=== PATIENT | male | born 1975 ===

== ENCOUNTER 2017-08-07 10:41 | Emergency (ER) | payer OTHER ==
[2017-08-07 10:41] VITALS: BMI 31.6
[2017-08-07] MEDS ORDERED: Sodium Chloride 0.9% 1,000 ML IV ONE (12:07)
[2017-08-07 12:26] LABS: BASO # 0.1 K/uL (0.0-0.2); BASO % 1.4 % (0.0-2.0); EOS # 0.2 K/uL (0.0-0.7); EOS % 2.8 % (0.0-4.0); HEMATOCRIT 45.2 % (35.0-51.0); LYMPH # 2.3 K/uL (1.0-4.3); LYMPH % 39.1 % (20.0-40.0); MEAN CELL VOLUME 87.4 fL (80.0-94.0); MEAN CORPUSCULAR HEMOGLOBIN 29.8 pg (27.0-31.0); MEAN CORPUSCULAR HGB CONC 34.1 g/dL (33.0-37.0); MEAN PLATELET VOLUME 9.9 fL (7.2-11.7); MONO # 0.5 K/uL (0.0-0.8); NRBC % 0.2 % (0.0-2.0); RED CELL DISTRIBUTION WIDTH 13.6 % (11.5-14.5); WHITE BLOOD COUNT 5.9 K/uL (4.8-10.8)
[2017-08-07 12:29] LABS: URINE BILIRUBIN NEGATIVE (NEGATIVE); URINE BLOOD NEGATIVE (NEGATIVE); URINE COLOR Yellow (YELLOW); URINE GLUCOSE (UA) NORMAL (Normal); URINE KETONE NEGATIVE (NEGATIVE); URINE LEUKOCYTE ESTERASE NEG Leu/uL (Negative); URINE PROTEIN NEGATIVE (NEGATIVE); URINE UROBILINOGEN NORMAL mg/dL (0.2-1.0); WBC URINE < 1 /hpf (0-5)
[2017-08-07 12:49] LABS: CHLORIDE 106 mmol/L (98-107); POTASSIUM 3.7 mmol/L (3.6-5.2); SODIUM 141 mmol/L (132-148)
[2017-08-07] MEDS ORDERED: Sodium Chloride 0.9% 1,000 ML ONE (12:49)
[2017-08-07 12:51] LABS: ALB/GLOB RATIO 1.3 (1.0-2.1); ALKALINE PHOSPHATASE 96 U/L (38-126); AST/SGOT 97 U/L (17-59); BILIRUBIN,TOTAL 0.9 mg/dL (0.2-1.3); CARBON DIOXIDE 23 mmol/L (22-30); GFR AFRICAN-AMERICAN > 60; TOTAL PROTEIN 7.8 g/dL (6.3-8.3)
[2017-08-07 12:52] LABS: ALT/SGPT 169 U/L (21-72); BLOOD UREA NITROGEN 15 mg/dL (9-20); CALCIUM 9.1 mg/dl (8.6-10.4); GLUCOSE,RANDOM 113 mg/dL (75-110)
[2017-08-07 13:00] VITALS: RESP 18; O2SAT 99
--- NOTE | 2017-08-07 13:53 | C.PDOC ---
History Of Present Illness 41 y/o male presents to ED for evaluation of intermittent RLQ abdominal pain associated with nausea for 3 days. (+)diarrhea. Pain radiates to right testicle yesterday, improved today. Otherwise, denies any vomiting, back pain, dysuria, hematuria, urinary frequency/retention, fever, or any other associated symptoms at this time. (+) h/o saba in 02/2017. Time Seen by Provider: 08/07/17 11:30 Chief Complaint (Nursing): Abdominal Pain History Per: Patient History/Exam Limitations: no limitations Onset/Duration Of Symptoms: Days Current Symptoms Are (Timing): Still Present Location Of Pain/Discomfort: RLQ Radiation Of Pain To:: None Quality Of Discomfort: "Pain" Associated Symptoms: Nausea, Diarrhea. denies: Fever, Chills, Vomiting, Loss Of Appetite, Back Pain, Chest Pain, Constipation, Urinary Symptoms Exacerbating Factors: None Alleviating Factors: None Recent travel outside of the [place]: No Additional History Per: Patient Past Medical History Reviewed: Historical Data, Nursing Documentation, Vital Signs Vital Signs: Last Vital Signs Temp 98.2 F 08/07/17 15:48 Pulse 78 08/07/17 15:48 Resp 18 08/07/17 15:48 BP 122/68 08/07/17 15:48 Pulse Ox 99 08/07/17 18:44 - Medical History PMH: Gastritis Denies: Chronic Kidney Disease - [facility] Procedures RESECTION OF GALLBLADDER, PERCUTANEOUS ENDOSCOPIC APPROACH (03/15/17) Family History: States: Unknown Family Hx - Social History Hx Alcohol Use: No Hx Substance Use: No - Immunization History Hx Tetanus Toxoid Vaccination: No Hx Influenza Vaccination: No Hx Pneumococcal Vaccination: No Review Of Systems Except As Marked, All Systems Reviewed And Found Negative. Constitutional: Negative for: Fever, Chills Gastrointestinal: Positive for: Nausea, Abdominal Pain, Diarrhea. Negative for : Vomiting, Constipation, Melena, Hematochezia Genitourinary: Positive for: Scrotal Pain. Negative for: Dysuria, Frequency, Hematuria, Penile Discharge, Penile Pain Musculoskeletal: Negative for: Back Pain Skin: Negative for: Rash, Bruising Neurological: Negative for: Headache, Dizziness Physical Exam - Physical Exam Appears: Non-toxic, No Acute Distress Skin: Normal Color, Warm, Dry, No Rash Head: Atraumatic, Normacephalic Eye(s): bilateral: Normal Inspection, EOMI Nose: Normal Oral Mucosa: Moist Neck: Normal ROM, Supple Chest: Symmetrical Cardiovascular: Rhythm Regular, No Murmur Respiratory: Normal Breath Sounds, No Rales, No Rhonchi, No Wheezing Gastrointestinal/Abdominal: Soft, Tenderness (RLQ), No Distention, No Guarding, No Rebound Back: No CVA Tenderness Extremity: Normal ROM, No Pedal Edema Neurological/Psych: Oriented x3, Normal Speech ED Course And Treatment - Laboratory Results Result Diagrams: 08/07/17 12:22 08/07/17 12:22 O2 Sat by Pulse Oximetry: 99 (on RA) Pulse Ox Interpretation: Normal - CT Scan/US Pelvis w/o contrast Other Rad Studies (CT/US): Interpreted By Me, Read By Radiologist CT/US Interpretation: ADDENDUM: Study was correlated with prior outside examination from [facility] dated 03/22/2017. [ Addendum Report Added by Sean Adan MD at 08/07/2017 15:09:20 ]. PROCEDURE: CT Abdomen and Pelvis with contrast. HISTORY: abd pain. COMPARISON: None. TECHNIQUE: Contrast dose: Visipaque 320, 100 cc. Radiation dose: Total exam DLP = 771 mGy-cm. This CT exam was performed using one or more of the following dose reduction techniques: Automated exposure control, adjustment of the mA and/or kV according to patient size, and/or use of iterative reconstruction technique. FINDINGS: LOWER THORAX: Respiratory motion degrades imaging through the images lung bases. Small hiatal hernia is encountered. LIVER: There is prominent diffuse fatty infiltration liver however there is no discrete mass appreciated throughout the liver. GALLBLADDER AND BILE DUCTS: Prior cholecystectomy again evident with prior postoperative changes now resolved. PANCREAS: Prior peripancreatic reaction appears to have resolved. No interval gross lesion or ductal dilatation. SPLEEN : Unremarkable. ADRENALS: Unremarkable. No mass. KIDNEYS AND URETERS: Unremarkable. No hydronephrosis. No solid mass. VASCULATURE: Unremarkable. No aortic aneurysm. BOWEL: Moderate retained fecal material is identified at the right hemicolon the stomach is collapsed as well as most of the small bowel. No bowel obstruction appreciable. APPENDIX: Normal appendix. PERITONEUM: Unremarkable. No free fluid. No free air. LYMPH NODES: Unremarkable. No enlarged lymph nodes. BLADDER: Unremarkable. REPRODUCTIVE: Unremarkable. BONES: No acute fracture. OTHER FINDINGS: None. IMPRESSION: 1. Normal- appearing appendix. 2. No obstructive uropathy bilaterally. 3. No bowel obstruction, mesenteric edema or ascites identified. 4. Resolution of prior postoperative cholecystectomy changes at the gallbladder fossa. 5. Apparent resolution of prior pancreatitis. Further clinical correlation is recommended. Testicular US Other Rad Studies (CT/US): Interpreted By Me, Read By Radiologist CT/US Interpretation: HISTORY: right sided pain. TECHNIQUE: Realtime sonography through the scrotum with color and doppler flow. COMPARISON: None Available. FINDINGS: RIGHT TESTICLE: Measures 4.2 x 2.3 x 3.0 cm. Normal echotexture and flow. RIGHT EPIDIDYMIS: Epididymal head measures 1.4 x 0.1 x 1.1 cm. Grossly unremarkable appearance with normal flow. LEFT TESTICLE: Measures 4.2 x 2.3 x 2.8 cm. Normal echotexture and flow. LEFT EPIDIDYMIS: Epididymal head measures 1.2 x 0.7 x 1.3 cm. There is a 0.8 x 0.8 x 1.0 cm left definite of avascular epididymal cyst at the head medially. HYDROCELE: Trace bilateral hydroceles are noted at the upper bilateral hemiscrotal regions. VARICOCELE: None. OTHER FINDINGS: None. IMPRESSION: 1. 1 cm left epididymal cyst appears avascular on color Doppler ultrasound. 2. Trace bilateral upper kely scrotal hydroceles. 3. No sonographic evidence to suggest testicular torsion, mass or cyst. Progress Note: Blood work, Abd & pelvis CT, UA, testicular US ordered and reviewed. Pt was given IV fliuds, Toradol, and Zofran. On reassessment, patient is resting comfortably, abdomen remains soft, and patient is tolerating PO. Pt states he feels better. 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 Patient will be discharged home with instructions to follow up with PMD in 1-2 days for further evaluation. Disposition - Disposition Referrals: Leland Piper MD [Staff Provider] - [facility] [Outside] [facility] [Outside] Disposition: HOME/ ROUTINE Disposition Time: 15:31 Condition: STABLE Additional Instructions: Follow up with your primary medical doctor or clinic in 2-5 days for further evaluation. Take medications as prescribed. Return to the emergency department at any time if symptoms persist or worsen. Instructions: Acute Abdominal Pain (ED) Forms: [employer] [facility] (Slovak) - Clinical Impression Clinical Impression: Abdominal pain - PA / PATTERN CLERK / Resident Statement MD/DO has reviewed & agrees with the documentation as recorded. - Scribe Statement The provider has reviewed the documentation as recorded by the Scribe Vinay Ontiveros All medical record entries made by the Heronibmaria t were at my direction and personally dictated by me. I have reviewed the chart and agree that the record accurately reflects my personal performance of the history, physical exam, medical decision making, and the department course for this patient. I have also personally directed, reviewed, and agree with the discharge instructions and disposition.
[2017-08-07] MEDS ORDERED: Iodixanol 320 MG/ML 100 ML BOTTLE IV ONE (14:47)
--- NOTE | 2017-08-07 14:50 | US ---
HISTORY: right sided pain TECHNIQUE: Realtime sonography through the scrotum with color and doppler flow. COMPARISON: None Available. FINDINGS: RIGHT TESTICLE: Measures 4.2 x 2.3 x 3.0 cm. Normal echotexture and flow. RIGHT EPIDIDYMIS: Epididymal head measures 1.4 x 0.1 x 1.1 cm. Grossly unremarkable appearance with normal flow. LEFT TESTICLE: Measures 4.2 x 2.3 x 2.8 cm. Normal echotexture and flow. LEFT EPIDIDYMIS: Epididymal head measures 1.2 x 0.7 x 1.3 cm. There is a 0.8 x 0.8 x 1.0 cm left definite of avascular epididymal cyst at the head medially. HYDROCELE: Trace bilateral hydroceles are noted at the upper bilateral hemiscrotal regions. VARICOCELE: None. OTHER FINDINGS: None. IMPRESSION: 1. 1 cm left epididymal cyst appears avascular on color Doppler ultrasound. 2. Trace bilateral upper kely scrotal hydroceles. 3. No sonographic evidence to suggest testicular torsion, mass or cyst.
--- NOTE | 2017-08-07 15:08 | CT ---
PROCEDURE: CT Abdomen and Pelvis with contrast HISTORY: abd pain COMPARISON: None. TECHNIQUE: Contrast dose: Visipaque 320, 100 cc Radiation dose: Total exam DLP = 771 mGy-cm. This CT exam was performed using one or more of the following dose reduction techniques: Automated exposure control, adjustment of the mA and/or kV according to patient size, and/or use of iterative reconstruction technique. FINDINGS: LOWER THORAX: Respiratory motion degrades imaging through the images lung bases. Small hiatal hernia is encountered. LIVER: There is prominent diffuse fatty infiltration liver however there is no discrete mass appreciated throughout the liver. GALLBLADDER AND BILE DUCTS: Prior cholecystectomy again evident with prior postoperative changes now resolved. PANCREAS: Prior peripancreatic reaction appears to have resolved. No interval gross lesion or ductal dilatation. SPLEEN: Unremarkable. ADRENALS: Unremarkable. No mass. KIDNEYS AND URETERS: Unremarkable. No hydronephrosis. No solid mass. VASCULATURE: Unremarkable. No aortic aneurysm. BOWEL: Moderate retained fecal material is identified at the right hemicolon the stomach is collapsed as well as most of the small bowel. No bowel obstruction appreciable. APPENDIX: Normal appendix. PERITONEUM: Unremarkable. No free fluid. No free air. LYMPH NODES: Unremarkable. No enlarged lymph nodes. BLADDER: Unremarkable. REPRODUCTIVE: Unremarkable. BONES: No acute fracture. OTHER FINDINGS: None. IMPRESSION: 1. Normal-appearing appendix. 2. No obstructive uropathy bilaterally. 3. No bowel obstruction, mesenteric edema or ascites identified. 4. Resolution of prior postoperative cholecystectomy changes at the gallbladder fossa. 5. Apparent resolution of prior pancreatitis. Further clinical correlation is recommended.
[2017-08-07 15:49] VITALS: BP 122/68; PULSE 78; TEMP 98.2
== END 2017-08-07 15:48 | disposition home or self-care (01) ==
LOC: C.ER 10:41
DX: R10.9 Unspecified abdominal pain (principal)
CPT/HCPCS: 74177; 76870; 80053; 81001; 83690; 85025; 96361; 96374; 96375; 99284; J1885; J2405; J7040; Q9967